=== PATIENT | male | born 1970 | race Caucasian/White ===

== ENCOUNTER 2019-01-18 12:26 | Emergency (ER) | payer BC, OTHER ==
[~2019-01-18] VITALS: Ht 175.2 cm; Wt 97.5 kg
[~2019-01-18 12:26] MED LIST: ASPIRIN DELAYE325 MG PO; BACTRIM DS 8001 TA1 PO; LISINOPRIL5 MG PO; SIMVASTATIN40 MG PO
[2019-01-18] MEDS ORDERED: SEPTDS PO (13:14)
== END 2019-01-18 13:35 | disposition home or self-care (01) ==
LOC: ED 12:26 → EDSEX 12:33 → ED 12:33
DX: L03.114 Cellulitis of left upper limb (principal); L08.9 Local infection of the skin and subcutaneous tissue, unspecified; Z79.2 Long term (current) use of antibiotics; Z79.899 Other long term (current) drug therapy; Z79.82 Long term (current) use of aspirin

== ENCOUNTER 2019-01-26 22:18 | Inpatient (IN) | payer BC, OTHER ==
[~2019-01-26] VITALS: Ht 152.4 cm; Wt 97.5 kg
[~2019-01-26 22:18] MED LIST changes: +SEPTDS PO
[2019-01-26] MEDS ORDERED: KEFLEX500 M1 PO (22:21)
[2019-01-26] MEDS ORDERED: HYDR25T PO (22:21)
[2019-01-26 22:22] VITALS: BP 133/83
[2019-01-26 23:36] LABS: BASO % 0.3 % (0.0-1.0); EOS # 0.1 10*3/uL (0.0-0.4); EOS % 1.5 % (1.0-4.0); HEMOGLOBIN 14.7 g/dl (14.0-18.0); LYMPH % 11.5 % (27.0-41.0); MEAN CELL VOLUME 88.7 fl (80.0-94.0); MEAN CORPUSCULAR HGB 29.6 pg (27.0-31.0); MEAN CORPUSCULAR HGB CONC 33.4 g/dl (33.0-37.0); MEAN PLATELET VOLUME 9.7 fl (9.6-12.3); MONO % 10.7 % (3.0-9.0); NEUT # 6.7 10*3/uL (2.3-7.9); NEUT % 75.6 % (47.0-73.0); PLATELET COUNT AUTOMATED 331 10*3/uL (130-400); RED BLOOD COUNT 4.96 10*6/uL (4.50-5.90); RED CELL DISTRI WIDTH 12.2 % (0-14.5); WHITE BLOOD COUNT 8.9 10*3/uL (4.8-10.8)
[2019-01-26 23:46] VITALS: BP 108/80
--- NOTE | 2019-01-26 23:51 | NUR ---
SCAB NOTED TO THE LEFT SHOULDER, NO DRAINAGE NOTED, NOTHING OPEN NOTED..
[2019-01-26 23:52] LABS: ALKALINE PHOSPHATASE 70 U/L (45-117); BUN 22 mg/dl (7-24); CHLORIDE 106 mmol/L (98-107); CREATININE 1.29 mg/dL (0.70-1.30); POTASSIUM 3.9 mmol/L (3.5-5.1); SGOT/AST 22 IU/L (3-35); SGPT/ALT 36 U/L (12-78); SODIUM 139 mmol/L (136-145); TOTAL PROTEIN 7.5 gm/dL (6.4-8.2)
--- NOTE | 2019-01-26 23:56 | NUR ---
ZOYSN STARTED AT 2318, VANC SCANNED AND WILL BE STARTED AFTER THE ZOYSN IS FINISHED...
--- NOTE | 2019-01-27 00:05 | NUR ---
A 48, admitted to 4E, under the services of CRYSTAL Staples MD with a diagnosis of cellulitis of left shoulder Chief complaint is Shoulder pain. Patient arrived via wheel chair from ER. Monitor applied. Initial assessment completed. Vital signs taken and recorded. CRYSTAL STAPLES MD notified of admission to the unit. Orders received. See assessment for past medical history, medications and allergies. Patient and/or family oriented to unit. [facility] visitation policy reviewed. Clothing/patient valuable form completed. HOLLEY CEE
[2019-01-27 01:11] VITALS: BP 98/52
--- NOTE | 2019-01-27 07:39 | NUR ---
PAULDUSTIN Hollis [id number] Please refer to the physician's history and physical for past medical history, comorbid conditions, and allergies. Diagnosis: CELLULITIS OF LEFT SHOULDER Arik Score: 23,LOW OR NO RISK WOUND DESCRIPTIONS: Wound Number: 1 Location of the wound: left shoulder Thickness: Full Size: 1.7cm x 2.9cm 0.1cm Tunneling: none Undermining: none Sinus Tract: none Presence of Exudate: none Amount: None Color: Black, yellow, red Odor: None Periwound Skin Appearance: Erythema, warmth Wound edges: approximated Pain (associated with wound): none at time of assessment How does patient state this happened? pt stated this started 1 weeks ago Surface the patient is resting on: Position Pro SKIN PREVENTION RECOMMENDATION: 1. Pressure redistribution support surface as appropriate 2. Elevate heels 3. Remove boots/TEDS every shift and reapply 4. Head of bed 30 degrees as tolerated 5. Assess nutrition and hydration 6. Manage moisture 7. Avoid the use of containment devices while in bed 8. Use absorptive products on surfaces limit layers of linens on bed 9. Turn and reposition every 1-2 hours in bed and every 1 hour in chair as tolerated 10. Weight shifts every 15 minutes while up in chair 11. Offloading with pillows or device to keep heels elevated off bed 12. Monitor skin at least every shift 13. Inspect under medical devices twice a day WOUND TREATMENT RECOMMENDATIONS: Consult for area and increase pain to left shoulder unable to move it. Full thickness guidelines: Cleanse left shoulder with nss and apply sureprep around the wound therahoney to wound bed and cover with optifoam gentle.
[2019-01-27 08:00] VITALS: BP 117/76
--- NOTE | 2019-01-27 09:00 | NUR ---
Door To Door Sales Representative in to talk to patient. Patient states lives at home with his and 3 children. There are 10 steps in the home. Physician: Dr. Cazares [facility]: [facility] Home health services: none Patient's level of ADLs: INDEPENDENT Patient has working utilities: yes DME: none Follow-up physician's appointment after d/c: he prefers to make his own follow up appt after discharge Does patient want to access PORTAL?: no Discharge plan discussed with patient. He lives at home with his family. He is independent in his ADLs and ambulation. Discussed home health care services and he denies any home needs at this time. When medially stable he will be discharged to home. His will transport on discharge. ASTRID DANIELS
--- NOTE | 2019-01-27 09:39 | NUR ---
'S OFFICE CALLED AT THIS TIME REGARDING CONSULT.
[2019-01-27 12:00] VITALS: BP 114/82
[2019-01-27 16:00] VITALS: BP 120/70
--- NOTE | 2019-01-27 17:06 | NUR ---
UNABLE TO OBTAIN WOUND CULTURE OF LEFT SHOULDER. ATTEMPTED EARLIER DURING ASSESSMENT. WILL CONTINUE TO MONITOR. DRESSING D/I TO LEFT SHOULDER.
[2019-01-27 20:00] VITALS: BP 137/84
[2019-01-28] VITALS: BP 112/71
--- NOTE | 2019-01-28 01:11 | NUR ---
24 HR chart check completed.
[2019-01-28 06:19] LABS: BASO % 0.6 % (0.0-1.0); EOS # 0.2 10*3/uL (0.0-0.4); EOS % 3.9 % (1.0-4.0); HEMATOCRIT 41.4 % (42.0-52.0); HEMOGLOBIN 13.5 g/dl (14.0-18.0); LYMPH # 1.3 10*3/uL (1.3-4.4); LYMPH % 27.5 % (27.0-41.0); MEAN CELL VOLUME 89.2 fl (80.0-94.0); MEAN CORPUSCULAR HGB 29.1 pg (27.0-31.0); MEAN CORPUSCULAR HGB CONC 32.6 g/dl (33.0-37.0); MEAN PLATELET VOLUME 9.7 fl (9.6-12.3); MONO # 0.4 10*3/uL (0.1-1.0); MONO % 8.1 % (3.0-9.0); NEUT # 2.9 10*3/uL (2.3-7.9); NEUT % 59.5 % (47.0-73.0); PLATELET COUNT AUTOMATED 302 10*3/uL (130-400); RED BLOOD COUNT 4.64 10*6/uL (4.50-5.90); RED CELL DISTRI WIDTH 12.1 % (0-14.5); WHITE BLOOD COUNT 4.8 10*3/uL (4.8-10.8)
[2019-01-28 06:38] LABS: BUN 13 mg/dl (7-24); CHLORIDE 106 mmol/L (98-107); CREATININE 0.86 mg/dL (0.70-1.30); POTASSIUM 4.3 mmol/L (3.5-5.1); SODIUM 141 mmol/L (136-145)
[2019-01-28 08:00] VITALS: BP 116/75
--- NOTE | 2019-01-28 08:30 | NUR ---
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 No new needs or request at this time. He denies any home needs at this time. When medically stable he will be discharged to home.
[2019-01-28 12:00] VITALS: BP 124/81
[2019-01-28 16:00] VITALS: BP 125/85
[2019-01-28 20:00] VITALS: BP 129/89
[2019-01-29] VITALS: BP 110/69
[2019-01-29 06:05] LABS: BASO % 0.7 % (0.0-1.0); EOS # 0.2 10*3/uL (0.0-0.4); HEMATOCRIT 38.6 % (42.0-52.0); HEMOGLOBIN 12.8 g/dl (14.0-18.0); LYMPH # 1.6 10*3/uL (1.3-4.4); LYMPH % 27.4 % (27.0-41.0); MEAN CELL VOLUME 89.8 fl (80.0-94.0); MEAN CORPUSCULAR HGB 29.8 pg (27.0-31.0); MEAN CORPUSCULAR HGB CONC 33.2 g/dl (33.0-37.0); MEAN PLATELET VOLUME 9.5 fl (9.6-12.3); MONO # 0.4 10*3/uL (0.1-1.0); MONO % 7.5 % (3.0-9.0); NEUT # 3.4 10*3/uL (2.3-7.9); NEUT % 59.9 % (47.0-73.0); PLATELET COUNT AUTOMATED 303 10*3/uL (130-400); WHITE BLOOD COUNT 5.7 10*3/uL (4.8-10.8)
[2019-01-29 06:21] LABS: BUN 11 mg/dl (7-24); CHLORIDE 109 mmol/L (98-107); CREATININE 0.84 mg/dL (0.70-1.30); POTASSIUM 4.6 mmol/L (3.5-5.1); SODIUM 142 mmol/L (136-145)
[2019-01-29 08:00] VITALS: BP 114/80
--- NOTE | 2019-01-29 09:45 | NUR ---
Iv site to RAN has a slight leak. IV site discontinued. IV started left antecubital with #20 angiocath after 1 attempts. The IV site was prepped with Chloraprep. Heparin lock attached. Sterile dressing applied. Patient tolerated precedure well. Procedure performed according to [facility] policy & procedure. ELIU CARIAS
[2019-01-29 12:00] VITALS: BP 133/79
--- NOTE | 2019-01-29 12:35 | NUR ---
Pt states that Dr. Adams was in and states he could go home. Declined pictures of left shoulder, states they were not taken on admission.
[2019-01-29] MEDS ORDERED: AUGMENTIN 875-875 MG PO (12:45)
--- NOTE | 2019-01-29 13:08 | NUR ---
Discharge instructions reviewed with patient. Patient receptive and verbalizes understanding. Follow-up care arranged. Written instructions given to patient. Pt is currently eating lunch and states he need to find a ride. ELIU CARIAS
--- NOTE | 2019-01-29 13:25 | NUR ---
PT DC VIA AMBULATORY, DECLINED WHEELCHAIR.
== END 2019-01-29 13:25 | disposition home or self-care (01) | DRG 603 ==
LOC: ED 22:18 → EDHOLD 23:51 → 4E 23:51
PROVIDERS: Emergency Medicine; Internal Medicine; Internal Medicine Nephrology; ADMIT Internal Medicine
DX: L03.114 Cellulitis of left upper limb (principal); I10 Essential (primary) hypertension; Z88.1 Allergy status to other antibiotic agents; Z88.8 Allergy status to other drugs, medicaments and biological substances; Z79.899 Other long term (current) drug therapy